=== PATIENT | female | born 1990 | race Caucasian/White ===

== ENCOUNTER 2022-02-09 07:10 | Outpatient (CLI) | payer BC, SELFPAY ==
--- NOTE | ~2022-02-09 | MR_ITS ---
EXAMINATION: MR ankle LT wo con DATE: 02/09/2022 07:46 INDICATION: Plantar fasciitis of left foot. TECHNIQUE: Magnetic resonance imaging (MRI) of the left ankle was performed without intravenous contr ast. Sequences included sagittal PD-weighted FS FSE, sagittal PD-weighted FSE, coronal PD-weighted FS FSE, coronal PD-weighted FSE, axial PD-weighted FS FSE, and axial PD-weighted FSE. COMPARISON: None. FINDINGS: Medial ankle ligaments: The superficial and deep components of the deltoid ligament are normal. Lateral ankle ligaments: There are changes of prior sprains of anterior talofibular ligament and calcaneofibular ligament román acterized increased signal intensity. Posterior talofibular ligament is normal. Anterior and posterio r tibiofibular ligaments are normal. Tendons: The medial and anterior ankle tendons are normal. There is mild peroneus longus tendinopathy. The Ach illes tendon is normal. Plantar fascia: There is thickening and increased signal involving the central band of the plantar fascia, consistent with fasciitis. There is an enthesophyte at the calcaneal attachment with edema-like marrow signal i ntensity. Bones/other: The talar dome is normal. There is no fracture. Fluid: There is no joint effusion. IMPRESSION: 1. Plantar fasciitis. Reviewed, dictated and finalized at location A. IMPRESSION: 1. Plantar fasciitis.
== END 2022-02-09 07:11 ==
LOC: MICIMG 07:11
PROVIDERS: PCP Internal Medicine; Visit Provider Podiatrist Foot & Ankle Surgery
DX: M72.2 Plantar fascial fibromatosis (principal); M79.672 Pain in left foot
CPT/HCPCS: 73721

== ENCOUNTER → 2022-08-18 14:36 | Outpatient (CLI) | payer BC, SELFPAY ==
--- NOTE | ~2022-08-18 | US_ITS ---
EXAMINATION: US transvaginal DATE: 08/18/2022 14:57 INDICATION: Intrauterine device placement. Irregular periods. TECHNIQUE: Multiple transvaginal sonographic images of the pelvis were obtained. COMPARISON: None. FINDINGS: The uterus measures measures 8.9 x 4.3 x 4.8 cm. There is no free fluid in the pelvis. The endometria l complex measures 4 mm in thickness. There is an intrauterine device in expected position. The right ovary measures 3.2 x 1.9 x 1.8 cm. The left ovary measures 3.3 x 2.6 x 2.6 cm. There is normal vascu lar flow in the ovaries. IMPRESSION: 1. Intrauterine device in expected position. Reviewed, dictated and finalized at location E.
== END ==
PROVIDERS: PCP Internal Medicine; Visit Provider Student in an Organized Health Care Education/Training Program
DX: Z30.431 Encounter for routine checking of intrauterine contraceptive device (principal)
CPT/HCPCS: 76830

== ENCOUNTER 2024-08-14 08:53 | Outpatient (CLI) | payer OTHER, SELFPAY ==
--- OUTSIDE RECORDS SUMMARY | 2024-08-14 09:24 | XMS_ITS | Continuity of Care Document ---
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 Name Role Phone Chance Sam MD Unavailable Unavailable Allergies, Adverse Reactions, Alerts Substance Reaction Status Criticality cat dander Itching of eyeSneezing Active No In formation Medications Medication Instructions Dosage Effective Dates (start - stop) Status Comments prednisone 20 mg tablet take 3 Tablet by oral route every day 60 MG - Active Procedures Procedure Date OFFICE/OUTPATIENT VISIT, EST PREV VISIT, NEW, AGE 18-39 Advance Directives Directive Yes / No Effective Date File Name No Information Encounters Encounter Description Practice Location Reason(s) For Visit Diagnoses Date Provider Providers Copied on Encounter OFFICE/OUTPAT IENT VISIT, EST [facility], [address] [facility] [place], [place], [id number], tel:[phone] [facility] COVID1 (chief complaint) Viral infection Flaco Fletcher. [address] [facility] [place], [id number], [place]. tel:[phone] PREV VISIT, NEW, AGE 18-39 [facility], [address] [facility] [place], [place], [id number], [place] tel:[phone] [facility] physical (chief complaint) Encounter for general adult medical examination without abnormal findings Flaco Fletcher. [address] [facility] [place], [id number], [place]. tel:[phone] Family History Family Member Type Diagnosis Age At Onset Mother Problem Alive and well Father Problem Diabetes mellitus Payers Payer name Insurance type Covered libertarian ID Kristal spencer(mark STEELE [id number] Social History Type Description Quantity Date Captured Comments Alcohol Use Details Caffeine Use Details Unknown Tobacco Use Status Current non-smoker Smoking Status Never smoker Sex Female Vital Signs Date / Time: Height Weight BMI Pulse Rate Blood Pressure Temperature Respiratory Rate Body Surface Area Head Circumference BMI percentile Pulse Ox Inhaled Ox 9:50 AM 63.00 in 176.80 lbs 31.3 2 kg/m eter (2) 86 /min 140/80 mm[Hg] 97.2 F 16 /min Chief Complaint And Reason For Visit From encounter dated '06/17/2024 09:47'. COVID1 (chief complaint). Description: Pt c/o acute onset of dry cough, sinus drainage, sore throat, since 7 days ago. Pt had some subjective fever with headache as well .Pt denies any sob Pt went tourgent care 4 days ago and she tested negative for flu, strep throat and positive for COVID Pt is not uptodate with COVID boosters .Pt still has some dry cough, sore throat and sinus symptoms. Pt denies any fever, sob . Plan Of Treatment Date Type Action Status No Information History Of Present Illness Encounter Date Complaint History Of Prese nt Illness COVID1 Pt c/o acute ons et of dry cough, sinus drainage, sore throat, since 7 days ago. Pt had some subjective fever with headache as well .Pt denies any sob Pt went to urgent care 4 days ago and she tested negative for flu, strep throat and positive for COVID Pt is not uptodate with COVID boosters .Pt still has some dry cough, sore throat and sinus symptoms. Pt denies any fever, sob . physical Pt needs annual physical. pt overall feels well .Pt had normal lab last year .Pt denies any complaints Pt wants to establish care only Instructions Date Instruction Additional Infor mation No Information Assessments Type Assessment Date assessment Viral infection Mental Status Date Cognitive Assessment Orientation - [place] ed to time, place, person, situation.
--- OUTSIDE RECORDS SUMMARY | 2024-08-14 09:25 | XMS_ITS | Data Portability ---
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 Plan of Treatment Reminders Order Date Submit Date Provider Last Modified By Organization Details Last Modified Time Details Appointments None recorded. Lab None recorded. Referral None recorded. Procedures None recorded. Surgeries None recorded. Imaging None recorded. Medication Orders fluticasone propionate 50 mcg/actuati on nasal spray,suspe nsion 2023 024 [email or web address] [facility] #[id number], [address], [place], [address], 4 15:16:49 montelukast 10 mg tablet 2023 024 [email or web address] [facility]Ph[facility] #[id number], [address] [facility] [address], [place], [address], 4 15:16:50 Patient TargetsNo targets recorded. Patient InstructionsNo instructions recorded. Reason for Referral None Reported. Results Created Date Observation Date Name Description Value Unit Range Abnormal Flag Note LastModifiedBy Organization Detail LastModifiedTime 05/21/19 24 05/21/2023 SARS- COV-2 RNA(C OVID1 9),RT -PCR sars-cov-2 RNA(covid19) ,RT-PCR NEGATI VE This test has been autho rized by the FDA under an Emerg ency Use Autho rizat ion (EUA) for use by autho rized labor atori es. Negat maria del carmen resul ts do not precl ude SARS- CoV-2 and shoul d not be used as the sole basis for treat ment or other patie nt manag ement decis ions. Test resul ts shoul d be corre lated with the clini radha histo ry, epide miolo gical data, and other data avail able to the clini arina evalu ating the patie nt. Ceasar delcid w the Fact Sheet s for healt h care provi ders and patie nts at the [facility]: https ://ww w.[facility] .gov/ media /136 12/do wnloa d https ://[employer] w.fda .gov/ media /1363 13/do wnloa d Maryo seble y: Real- Time RT-PC R Not Available [facility] ([facility]) [address] [place], [address], 05/21/2023 15:57:11 08/19/19 23 08/18/2022 , deepika montes No observ ation record ed. [facility] [place] [address] [address] [facility] [address], [place], [address], 08/25/2022 14:11:03 Result Notes None recorded. Problems Name Problem SNOMED Code Status Onset Date Resolution Date Notes Provider Name and Address Organization Details Recorded Time Acute sinusitis 91490528 Completed 202201/31/2024 Karlie gray RMA daljit[place] - [employer] 09:30:36 COVID-19 009026172 Completed 202301/31/2024 Karlie gray RMA null, [place] - [employer] 09:30:38 Migraine 92234825 Active 2023 Karlie gray RMA null, [place] - [facility] 09:30:59 Plantar fasciitis of left foot 58092954152 076490 Completed 202101/31/2024 Karlie gray RMA null, [facility] [employer] 4 09:31:02 Plantar fasciitis of right foot 11156988440 366309 Active 2020 Not Available [facility] 3 03:22:47 Acute sinusitis 91680277 Completed 202111/01/2021 Karlie gray BIBIANAKristopher null, [facility] [employer] [facility] 4 09:30:36 Missed miscarria ge 41474398 Completed Not Available [facility] 3 03:22:47 Tibialis posterior tendiniti s 157146509 Active 2020 Not Available [facility] 3 03:22:47 Syncope 144820233 Completed Not Available [facility] 3 03:22:47 Reduced movement 517875529 Completed Not Available [facility] 3 03:22:47 Left lower quadrant pain 969325229 Completed Not Available [facility] 3 03:22:47 Uses IUD (intraute rine device) contracep tion 191867998 Completed Not Available [facility] 3 03:22:48 Pain in right foot 86768908291 9107 Completed 202011/01/2021 Not Available [facility] 3 03:22:48 Sinusitis 59997703 Completed Not Available [facility] 3 03:22:48 Porokerat osis 255960073 Active 2022 Not Available [facility] 3 03:22:48 Cough 40428535 Completed Not Available [facility] 3 03:22:48 Threatene d miscarria ge 84552836 Completed Not Available [facility] 3 03:22:48 Upper respirato ry infection 35986012 Completed Marcella Portillo MD [address], [place], [address] , [facility] [employer] [facility] 4 15:56:28 Allergic rhinitis 43678143 Active 2023 Marcella Portillo MD [address], [address], [place], [address] , [facility] [place] [employer] 09:38:33 Upper respirato ry infection 55164642 Active 2023 Marcella Portillo MD [address] [facility], [facility] [address], [place], [address] , [facility] [employer] 15:56:28 Problem Notes None recorded. Procedures Surgical History Date Name Laterality Status Provider Name and Address Organization Details Recorded Time 9 THREAD CHECKER Procedure completed Not Available [facility] 2022 03:14:37 9 Date of Last Pap Smear completed Not Available [facility] 06/21/2022 03:14:35 7 THREAD CHECKER Procedure completed Not Available [facility] 2022 03:14:37 6 THREAD CHECKER Procedure completed Not Available [facility] 2022 03:14:37 5 THREAD CHECKER Surgery completed Not Available [facility] 06/22/19 03:14:37 4 THREAD CHECKER Procedure completed Not Available [facility] 2022 03:14:37 3 THREAD CHECKER Procedure completed Not Available [facility] 2022 03:14:37 Eye Surgery completed Not Available [facility] 06/21/2022 03:14:37 Imaging Results Imaging Date Name Status LastModified by Organiz ation Details LastModified Time 08/18/2022 US, pelvis completed [email or web address] [facility] [address] [facility] [address], [place], [address], 08/25/2022 14:11:03 Procedure Notes None recorded. Medical Equipment None Reported. Allergies No known drug allergies Medications Name Sig Start Date Stop Date Status Note LastModified by Organization Details LastModified Time cyclobenz aprine 10 mg tablet Take 1 tablet 3 times a day by oral route as needed for 30 days. active Not Available Not Available No t Available amoxicill in 500 mg capsule Take 1 capsule 3 times a day by oral route for 7 days. 05/22 completed Not Available Not Available Not Available medroxypr ogesteron e 10 mg tablet Take 2 tablets 3 times a day by oral route for 7 days. active Not Available Not Available No t Available Mirena 21 mcg/24 hr (up to 8 years) 52 mg intrauter ine device Take 1 device by intraute rine route. 12/19 completed Not Available Not Available Not Available prednison e 10 mg tablet TAKE 1 TAB BY MOUTH 3 TIMES A DAY X 3 DAYS, 1 TAB TWICE DAILY X 2 DAYS, THEN 1 TAB X1DAY 11/01 completed Not Available Not Available Not Available ammonium lactate 12 % lotion Apply 3 applicat ions every day by topical route as needed. 05/22 completed apply to plantar foot callus up to 3 times daily the as needed Not Available Not Available Not Available loperamid e 2 mg capsule 05/22 completed Not Available Not Available Not Available azithromy hira 250 mg tablet TK 2 TS PO AT ONCE TODAY THEN TK 1 T PO ONCE D FOR 4 DAYS active Not Available Not Available No t Available ibuprofen 800 mg tablet TAKE 1 TABLET BY MOUTH THREE TIMES A DAY NEEDED FOR PAIN 05/22 completed Not Available Not Available Not Available fluconazo le 150 mg tablet Take 1 tablet by oral route. active Not Available Not Available No t Available benzonata te 200 mg capsule Take 1 capsule 3 times a day by oral route. active Not Available Not Available No t Available hydrocodo ne 5 mg-acetam inophen 325 mg tablet active Not Available Not Available Not Available meloxicam 15 mg tablet Take 1 tablet every day by oral route as needed for 30 days. 11/01 completed Not Available Not Available Not Available metronida zole 0.75 % (37.5 mg/5 gram) vaginal gel Insert 1 applicat orful by vaginal route at bedtime for 5 days. 02/20 completed Not Available Not Available Not Available terconazo le 0.8 % vaginal cream Insert 1 applicat orful every day by vaginal route for 3 days. active Not Available Not Available No t Available metronida zole 500 mg tablet Take 1 tablet twice a day by oral route for 7 days. active Not Available Not Available No t Available acetamino phen 300 mg-codein e 30 mg tablet active Not Available Not Available Not Available sulfameth oxazole 800 mg-trimet hoprim 160 mg tablet TAKE 1 TABLET BY MOUTH EVERY 12 HOURS FOR 5 DAYS 05/22 completed Not Available Not Available Not Available tramadol 50 mg tablet TAKE 1 TABLET BY MOUTH TWICE A DAY NEEDED active Not Available Not Available No t Available amoxicill in 500 mg tablet Take 1 tablet 3 times a day by oral route for 7 days. active Not Available Not Available No t Available prednison e 10 mg tablets in a dose pack Take 1 tab by mouth, 3 times a day for 3 daysTake 1 tab by mouth 2 times a day for 2 daysTake 1 tab by mouth once a day for 1 day 11/01 completed Not Available Not Available Not Available famotidin e 20 mg tablet Take 1 tablet twice a day by oral route. active Not Available Not Available No t Available Depo-Prov era 150 mg/mL intramusc ular suspensio n Inject 1 mL every 3 months by intramus cular route. 06/18 completed pt tolerate d well-nm Not Available Not Available Not Available Kenalog 10 mg/mL suspensio n for injection In office injectio n administ ered by the provider 11/01 completed [facility]: [id number] 08-10 Not Available Not Available Not Available flunisoli de 25 mcg (0.025 %) nasal spray Please specify directio ns, refills and quantity active Not Available Not Available No t Available ferrous sulfate 325 mg (65 mg iron) tablet TK 1 T PO BID active Not Available Not Available No t Available misoprost ol 200 mcg tablet 2 tabs orally night before procedur e 12/18 completed Not Available Not Available Not Available monteluka st 10 mg tablet TAKE 1 TABLET BY MOUTH EVERY DAY 2023 active CHARLY 01/31/24 ok to rf Not Available Not Available Not Available ibuprofen 600 mg tablet active Not Available Not Available Not Available norethind jonas (contrace ptive) 0.35 mg tablet TAKE 1 TABLET BY MOUTH EVERY DAY active Not Available Not Available No t Available intrauter ine device (IUD) Take by intraute rine route. active Not Available Not Available No t Available ondansetr on 4 mg disintegr ating tablet 05/22 completed Not Available Not Available Not Available fluticaso ne propionat e 50 mcg/actua tion nasal spray,mindy pension SPRAY 2 SPRAYS INTO EACH NOSTRIL EVERY DAY 2023 active CHARLY 01/31/24 ok to rf Not Available Not Available Not Available naproxen 500 mg tablet TAKE 1 TABLET BY MOUTH TWICE A DAY NEEDS AN APPT active Not Available Not Available No t Available metoclopr amide 10 mg tablet Take 1 tablet 3 times a day by oral route. active Not Available Not Available No t Available amoxicill in 875 mg-potass ium clavulana te 125 mg tablet TAKE 1 TABLET BY MOUTH TWICE A DAY 05/22 completed Not Available Not Available Not Available Depo-Prov era 150 mg/mL intramusc ular syringe Inject 1 mL every 3 months by intramus cular route. 05/22 completed Not Available Not Available Not Available cyclobenz aprine 5 mg tablet Take 1 tablet 3 times a day by oral route. active Not Available Not Available No t Available 05/12 (21) 1 mg-20 mcg tablet TAKE 1 TABLET BY MOUTH EVERY DAY 05/22 completed Not Available Not Available Not Available once a day 2014 active Not Available Not Available Not Avai lable lidocaine (PF) 10 mg/mL (1 %) injection solution In office injectio n administ ered by the provider 11/01 completed [facility]: [id number] 10-07 Not Available Not Available Not Available Se-Rich 19 (with docusate) 29 mg iron-1 mg-25 mg tablet TK 1 T PO D active Not Available Not Available No t Available 19 (with docusate) 29 mg iron-1 mg-25 mg tablet Take 1 tablet by oral route. active Not Available Not Available No t Available Claritin- D 2014 active Not Available Not Available Not Avai lable Xulane 150 mcg-35 mcg/24 hr transderm al patch APPLY 1 PATCH TO SKIN Q WEEK FOR 3 WEEKS THEN OFF FOR 1 WEEK active Not Available Not Available No t Available Afluria Qd (36 mos up)(PF)60 mcg (15 mcg x4)/0.5 mL IM syringe active Not Available Not Available Not Available Twirla 120 mcg-30 mcg/24 hr transderm al patch Apply 1 patch every week by transder mal route for 21 days. 05/22 completed Not Available Not Available Not Available Vitals Date Recorded Body weight Body mass index (BMI) Body height Body temperature Systolic blood pressure Diastolic blood pressure Provider Name and Address Organization Details Last Updated DateTime 4 99687.9 3 g 29.6 kg/m2 160.02 cm 97.9 [degF] 118 mm[Hg] 62 mm[Hg] Gianna Earl CMA IN [employer] [facility] [employer] [facility] 4 14:54:00 Date Recorded Body height Body mass index (BMI) Body weight Body temperature Heart rate Oxygen saturation Oxygen saturation in Arterial blood by Pulse oximetry Systolic blood pressure Diastolic blood pressure Provider Name and Address Organization Details Last Updated DateTime 4 160.02 cm 28.9 kg/m2 04145.5 6 g 97.2 [degF] 79 /min 99 % 99 % 124 mm[Hg] 80 mm[Hg] Karlie Herman axel ALLY IN [employer] [facility] [employer] [facility] 4 09:29:21 Date Recorded Body height Body mass index (BMI) Body weight Body temperature Oxygen saturation Oxygen saturation in Arterial blood by Pulse oximetry Heart rate Systolic blood pressure Diastolic blood pressure Provider Name and Address Organization Details Last Updated DateTime 4 160.02 cm 29.9 kg/m2 53138.1 1 g 98.8 [degF] 98 % 98 % 77 /min 119 mm[Hg] 78 mm[Hg] Fernanda mckinney [place] [employer] [facility] [employer] [facility] 4 15:21:26 Date Recorded Body mass index (BMI) Body height Body weight Provider Name and Address Organization Details Last Updated DateTime 03/30/2022 28.9 kg/m2 160.02 cm 43254.56 g Not Available [facility] 06/21/2022 03:20:00 Social History Question Answer Notes LastModified by Organizat ion Details LastModified Time Tobacco Smoking Status Never Smoker Not Available [facility] 06/21/2022 03:09:21 Do You Have An Advance Directive? No [id number] Information not available 06/21/2022 What Is Your Level Of Alcohol Consumption? Occasional [id number] Information not available 06/21/2022 What Is Your Level Of Caffeine Consumption? Moderate [id number] Information not available 06/21/2022 How Much Tobacco Do You Chew? None [id number] Information not available 06/21/2022 What Type Of Diet Are You Following? REGULAR [id number] Information not available 06/21/2022 Which Illicit Or Recreational Drugs Have You Used? None [id number] Information not available 06/21/2022 Do You Or Have You Ever Used E-cigarettes Or Vape? 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 11/01/2020 [id number] Information not available 06/21/2022 Do You Use Sunscreen Routinely? No [id number] Information not available 06/21/2022 Sex: Female Functional Status Question Answer Note LastModified by Organizat ion Details LastModified Time What is your exercise level? Occasional [id number] Information not available 06/21/2022 Mental Status None recorded. Family History Relationship Description Onset Age of this Age Resolved Age Notes LastModified by Organization Details LastModified Time Paternal Grandmother Malignant tumor of ovary [id number] Not available 06/21/2022 03:14:43 Maternal Grandmother Malignant tumor of colon [id number] Not available 06/21/2022 03:14:43 Medical History No medical history recorded. Gynecological History Statement/Question Response Date of Last Pap 07/10/2018 Date of Last Pap Smear 07/10/2018 Current Control Method Depo-Capsule Inspector a Age at Menarche 14 Date of LMP Obstetrics History GPAL:G 3 P 2 0 1 2 Type Value Full Term 2 Spontaneous 1 Living 2 Total 3 Immunizations Vaccine Type Date Status Note Provider Nam e and Address Organization Details Recorded Time Influenza, split virus, quadrivalent, preservative 0 completed Not Available [facility] 06/21/2022 03:31:45 Past Encounters Encounter ID Performer Location Encounter Start Date Encounter Closed Date Diagnosis/Indication Diagnosis SNOMED-CT Code Diagnosis ICD10 Code Diagnosis Note [id number] _BIMAL_Dori IGRATION_ DEFAULT_1 _1 , 07/27/2020 00:00:00 07/27/2020 10:07:54 [id number] [facility] [place] [address] [place] [address] 08/02/2020 00:00:00 08/02/2020 10:41:59 [id number] _ATHENA_M IGRATION_ DEFAULT_1 _1 , 09/09/2020 00:00:00 09/09/2020 17:10:14 [id number] [facility] [place] [address] [place] [address] 09/27/2020 00:00:00 09/27/2020 13:41:54 [id number] _ATHENA_M IGRATION_ DEFAULT_1 _1 , 10/19/2020 00:00:00 10/19/2020 10:33:38 [id number] [facility] [address] [place] [address] 11/01/2020 00:00:00 11/01/2020 15:42:24 [id number] [facility] [place] [address] [place] [address] 11/08/2020 00:00:00 11/09/2020 08:58:08 [id number] [facility] [place] [address] [place] [address] 11/18/2020 00:00:00 11/19/2020 09:57:57 [id number] [facility] [place] [address] [place] [address] 12/09/2020 00:00:00 12/10/2020 08:50:51 [id number] [facility] [place] [address] [place] [address] 12/30/2020 00:00:00 12/30/2020 13:58:01 [id number] _ATHENA_M IGRATION_ DEFAULT_1 _1 , 01/17/2021 00:00:00 01/17/2021 14:45:20 [id number] [facility] [place] [address] [place] [address] 06/30/2021 00:00:00 07/02/2021 12:43:31 [id number] [facility] [address] [place] [address] 09/21/2021 00:00:00 09/21/2021 17:05:03 [id number] [facility] [place] [address] [place] [address] 11/03/2021 00:00:00 11/06/2021 15:01:52 [id number] _ATHENA_M IGRATION_ DEFAULT_1 _1 , 12/09/2021 00:00:00 12/11/2021 11:44:54 [id number] _ATHENA_M IGRATION_ DEFAULT_1 _1 , 01/13/2022 00:00:00 01/14/2022 11:23:54 [id number] _ATHENA_M IGRATION_ DEFAULT_1 _1 , 03/03/2022 00:00:00 03/03/2022 10:21:13 [id number] [facility] [place] [address] [place] [address] 03/30/2022 00:00:00 03/30/2022 14:06:04 [id number] [facility] [place] [address] [place] [address] 05/15/2022 00:00:00 05/20/2022 09:14:28 [id number] Marcella Portillo MD [facility] [address] [place] [address] 05/22/2023 14:44:00 05/22/2023 15:16:21 Migraine 33311108 G43.909 will try otc Excedrin prn, call if not better [id number] Marcella Portillo MD [facility] [address] [place] [address] 01/31/2024 09:26:14 01/31/2024 09:44:09 Allergic rhinitis 54068306 J30.9 needs meds fro few month when season changes [id number] Marcella Portillo MD [facility] [address] [place] [address] 04/09/2024 15:12:17 04/09/2024 16:07:44 Upper respiratory infection 46024068 J06.9 advil cold and sinusFlona se Health Concerns Section Related Observation LastModified by Organization Detai ls LastModified Time None Recorded Concern Status LastModified by Organization Details LastModified Time None Recorded Advance Directives Directive N: Payers Encounter Date Sequence Insurance Name Policy Number Policy Vences Covered Member ID Vences Member ID Guarantor Name 05/22/2023 1 [place] 112 Beatriz A Claudia [id number] Beatriz A Claudia 01/31/2024 1 [place] 112 Beatriz A Claudia [id number] Beatriz A Claudia 04/09/2024 1 [place] 112 Beatriz A Claudia [id number] Beatriz A Claudia Notes Date Note Type Note Provider Name and Address Organization Details Recorded Time 05/22/2023 text/html She is here toda y for not feeling good. States the Last couple days has been having a really bad headaches, Has been very nauseated, has vomited once and Has had diarrhea. No feverPressure behind the eyesphotophobia, phonophobiano sinus problems COVID- NEGATIVEHas been taking Extra strength tylenol which does not help muchNeeds a work note because she did take off yesterday and today Marcella Portillo MD [address], [facility] [address], [place], [address], [employer] 05/22/2023 15:17:08 01/31/2024 text/html Pt is here today for a cough. Has been going on off and on for about 3 weeks. Has been taking OTC Claritin, Zyrtec -DWas Negative for COVID. No feversneezing , itchy eyespost nasal drainage Marcella Portillo MD [address], [facility] [address], [place], [address], [employer] [facility] [employer] 01/31/2024 09:41:39 04/09/2024 text/html pt still has dry cough tickling with some sinus drainage about 2 wks with body chills,low grade temp of an on. No otc med pt is using flonaseno cp or wheezingno wheezing Marcella Portillo MD [address] [address], [place], [address], [facility] [employer] [facility] 04/09/2024 15:59:00 OBGyn Episode No OBEpisode recorded.
[2024-08-14 09:49] LABS: Beta HCG Quantitative < 2.39 mIU/ML
== END 2024-08-14 08:54 | disposition home or self-care (01) ==
PROVIDERS: PCP Internal Medicine; Visit Provider Student in an Organized Health Care Education/Training Program
DX: N91.2 Amenorrhea, unspecified (principal)
CPT/HCPCS: 36415; 84702

== ENCOUNTER 2024-09-29 08:18 | Outpatient (CLI) | payer OTHER, SELFPAY ==
--- OUTSIDE RECORDS SUMMARY | 2024-09-29 08:37 | XMS_ITS | Continuity of Care Document ---
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 [address] [facility] [place], [address], [place]. tel:[phone] PREV VISIT, NEW, AGE 18-39 [facility], [address] [facility] [place], [address], [place] tel:[phone] [facility] physical (chief complaint) Encounter for general adult medical examination without abnormal findings [employer]aco Fletcher. [address] [employer] [facility] [place], [address], [place]. tel:[phone] Family History Family Member Type Diagnosis Age At Onset Mother Problem Alive and well Father Problem Diabetes mellitus Payers Payer name Insurance type Covered republican ID Kristal spencer(mark STEELE [id number] Social History Type Description Quantity Date Captured [...] Mental Status Date Cognitive Assessment Orientation - Aledo ed to time, place, person, situation.
--- OUTSIDE RECORDS SUMMARY | 2024-09-29 08:37 | XMS_ITS | Data Portability ---
Author Organization [facility] [employer], Main Office Address [address] [place] [address] Care Team Providers Care Data Collection Associate Name Role Phone MARCELLA PORTILLO Primary Care Provider [phone] MARCELLA PORTILLO Referring Provider Assessment No assessment recorded. Plan of Treatment Reminders Order Date Submit Date Provider Last Modified By Organization Details Last Modified Time Details Appointments None recorded. Lab None recorded. Referral None recorded. Procedures None recorded. Surgeries None recorded. Imaging None recorded. Medication Orders fluticasone propionate 50 mcg/actuati on nasal spray,suspe nsion 2023 024 [email or web address] [facility]/Ph[facility] #[id number], [address] [facility], [place], [address], 4 15:16:49 montelukast 10 mg tablet 2023 024 [email or web address] [facility]/Pharmacy #[id number], [address] [facility] [facility], [place], [address], 4 15:16:50 Patient TargetsNo targets recorded. Patient [...] provi ders and patie nts at the [facility] madie: https ://ww w.MySongToYou .gov/ media /1366 12/do wnloa d https ://Orbital Traction w.fda .gov/ media /1363 13/do wnloa d Maryo seble y: Real- Time RT-PC R Not Available [facility] ([facility]) [address] [place], [address], 05/21/2023 15:57:11 08/19/19 23 08/18/2022 , deepika montes No observ ation record ed. [facility] [place] [address] [address] [facility] [address], [place], [address], 08/25/2022 14:11:03 Result Notes None recorded. Problems Name Problem SNOMED Code Status Onset Date Resolution Date Notes Provider Name and Address Organization Details Recorded Time Acute sinusitis 45788840 Completed 202201/31/2024 Karlie gray RMA daljit, [place] - [employer] 09:30:36 COVID-19 346266506 Completed 202301/31/2024 Karlie gray RMA null, [place] - [employer] 09:30:38 Migraine 29882086 Active 2023 Karlie gray RMA null, [place] - [facility] [employer] 09:30:59 Plantar fasciitis of left foot 39191143000 703135 Completed 202101/31/2024 Karlie gray RMA null, [facility] [employer] 4 09:31:02 Plantar fasciitis of right foot 97130290570 709874 Active 2020 Not Available [facility] 3 03:22:47 Acute sinusitis 78069505 Completed 202111/01/2021 Karlie gray BIBIANAKristopher null, [facility] [employer] [facility] 4 09:30:36 Missed miscarria ge 81709074 Completed Not Available [facility] 3 03:22:47 Tibialis posterior tendiniti s 453144711 Active 2020 Not Available [facility] 3 03:22:47 Syncope 592236358 Completed Not Available [facility] 3 03:22:47 Reduced movement 910021556 Completed Not Available [facility] 3 03:22:47 Left lower quadrant pain 541468411 Completed Not Available [facility] 3 03:22:47 Uses IUD (intraute rine device) contracep tion 644786152 Completed Not Available [facility] 3 03:22:48 Pain in right foot 80479522753 9107 Completed 202011/01/2021 Not Available [facility] 3 03:22:48 Sinusitis 59575179 Completed Not Available [facility] 3 03:22:48 Porokerat osis 543971471 Active 2022 Not Available [facility] 3 03:22:48 Cough 30866780 Completed Not Available [facility] 3 03:22:48 Threatene d miscarria ge 10299017 Completed Not Available [facility] 3 03:22:48 Upper respirato ry infection 49564181 Completed Marcella Portillo MD [address], [place], [address] , [facility] [employer] [facility] 4 15:56:28 Allergic rhinitis 80489442 Active 2023 Marcella Portillo MD [address], [place], [address] , [facility] [place] [employer] 09:38:33 Upper respirato ry infection 97718653 Active 2023 Marcella Portillo MD [address] [facility], [facility] [address], [place], [address] , [facility] - [employer] MD [employer] [facility] 15:56:28 Problem Notes None recorded. Procedures Surgical History Date Name Laterality Status Provider Name and Address Organization Details Recorded Time 9 SENIOR FINANCIAL CONSULTANT Procedure completed Not Available [facility] 2022 03:14:37 9 Date of Last Pap Smear completed Not Available [facility] 06/21/2022 03:14:35 7 SENIOR FINANCIAL CONSULTANT Procedure completed Not Available [facility] 2022 03:14:37 6 SENIOR FINANCIAL CONSULTANT Procedure completed Not Available [facility] 2022 03:14:37 5 SENIOR FINANCIAL CONSULTANT Surgery completed Not Available [facility] 06/22/19 03:14:37 4 SENIOR FINANCIAL CONSULTANT Procedure completed Not Available [facility] 2022 03:14:37 3 SENIOR FINANCIAL CONSULTANT Procedure completed Not Available [facility] 2022 03:14:37 Eye Surgery completed Not Available [facility] 06/21/2022 03:14:37 Imaging Results None recorded. Procedure Notes None recorded. Medical Equipment None [...] administ ered by the provider 11/[address] [facility]: [id number] 08-10 Not Available Not Available Not [...] administ ered by the provider 11/[address] [facility]: [id number] 10-07 Not Available Not Available Not [...] Address Organization Details Last Updated DateTime 4 92758.9 3 g 29.6 kg/m2 160.02 cm 97.9 [degF] 118 mm[Hg] 62 mm[Hg] Gianna Earl CMA [place] - [facility] 4 14:54:00 Date Recorded Body height Body mass index (BMI) Body weight Body temperature Heart rate Oxygen saturation Oxygen saturation in Arterial blood by Pulse oximetry Systolic blood pressure Diastolic blood pressure Provider Name and Address Organization Details Last Updated DateTime 4 160.02 cm 28.9 kg/m2 14920.5 6 g 97.2 [degF] 79 /min 99 % 99 % 124 mm[Hg] 80 mm[Hg] Karlie reyna BIBIANAKristopher [place] - S MD [employer] [facility] 4 09:29:21 Date Recorded Body mass index (BMI) Body height Body weight Provider Name and Address Organization Details Last Updated DateTime 03/30/2022 28.9 kg/m2 160.02 cm 85197.56 g Not Available [facility] 06/21/2022 03:20:00 Date Recorded Body height Body mass index (BMI) Body weight Body temperature Oxygen saturation Oxygen saturation in Arterial blood by Pulse oximetry Heart rate Systolic blood pressure Diastolic blood pressure Provider Name and Address Organization Details Last Updated DateTime 4 160.02 cm 29.9 kg/m2 54787.1 1 g 98.8 [degF] 98 % 98 % 77 /min 119 mm[Hg] 78 mm[Hg] Fernanda mckinney [place] - [facility] [employer] [facility] 4 15:21:26 Social History Question Answer Notes LastModified by [employer] Details LastModified Time Tobacco Smoking Status Never Smoker Not Available [facility] 06/21/2022 03:09:21 Do You Have An Advance Directive? No [id number] Information not available 06/21/2022 What Is Your Level Of Caffeine Consumption? Moderate [id number] 026 Information not available 06/21/2022 How Much Tobacco Do You Chew? None [id number] Information not available 06/21/2022 What Type Of Diet Are You Following? REGULAR [id number].[id number] 026 Information not available 06/21/2022 Which Illicit Or Recreational Drugs Have You Used? None [id number] 026 Information not available 06/21/2022 What Was The Date Of Your Most Recent Tobacco Screening? 11/01/2020 [id number] Information not available 06/21/2022 Do You Use Sunscreen Routinely? No [id number].[id number] 026 Information not available 06/21/2022 Sex: Female Functional Status Question Answer Note LastModified by Organizat ion Details LastModified Time What is your level of alcohol consumption? 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 Never used electronic cigarettes [id number].6056273 026 Information not available 06/21/2022 What is your exercise level? Occasional [id number] 026 Information not available 06/21/2022 Mental Status None recorded. Family History Relationship Description Onset Age of this Age Resolved Age Notes LastModified by Organization Details LastModified Time Paternal Grandmother Malignant neoplasm of ovary [id number] Not available 06/21/2022 03:14:43 Maternal Grandmother Malignant tumor of colon MIGRATION.660 [id number] Not available 06/21/2022 03:14:43 Medical History No medical history recorded. Gynecological History Statement/Question Response Date of Last Pap 07/10/2018 Date of Last Pap Smear 07/10/2018 Current Control Method [employer] a Age at Menarche 14 Date of LMP Obstetrics History GPAL:G 3 P 2 0 1 2 Type Value Full Term 2 Spontaneous 1 Living 2 Total 3 Immunizations Vaccine Type Date Status Note Provider Nam e and Address Organization Details Recorded Time Influenza, split virus, quadrivalent, preservative 0 completed Not Available [facility] 06/21/2022 03:31:45 Past Encounters Encounter ID Performer Location Encounter Start Date Encounter Closed Date Diagnosis/Indication Diagnosis SNOMED-CT Code Diagnosis ICD10 Code Diagnosis Note [id number] [facility] _ATHENA_M IGRATION_ DEFAULT_1 _1 , 07/27/2020 00:00:00 07/27/2020 10:07:54 [id number] MIKE Bucio [facility] [place] [address] [address] [place] [address] 08/02/2020 00:00:00 08/02/2020 10:41:59 [id number] [facility] _ATHENA_M IGRATION_ DEFAULT_1 _1 , 09/09/2020 00:00:00 09/09/2020 17:10:14 [id number] [facility] [place] [address] [place] [address] 09/27/2020 00:00:00 09/27/2020 13:41:54 [id number] [facility] _ATHENA_M IGRATION_ DEFAULT_1 _1 , 10/19/2020 00:00:00 10/19/2020 10:33:38 [id number] Marcella Portillo MD S[facility] [address] [facility] [place] [address] 11/01/2020 00:00:00 11/01/2020 15:42:24 [id number] [facility] [place] [address] [place] [address] 11/08/2020 00:00:00 11/09/2020 08:58:08 [id number] [facility] [place] [address] [place] [address] 11/18/2020 00:00:00 11/19/2020 09:57:57 [id number] [facility] [place] [address] [place] [address] 12/09/2020 00:00:00 12/10/2020 08:50:51 [id number] [facility] [place] [address] [place] [address] 12/30/2020 00:00:00 12/30/2020 13:58:01 [id number] [facility] _ATHENA_M IGRATION_ DEFAULT_1 _1 , 01/17/2021 00:00:00 01/17/2021 14:45:20 [id number] [facility] [place] [address] [place] [address] 06/30/2021 00:00:00 07/02/2021 12:43:31 [id number] Marcella Portillo MD [facility] [address] [place] [address] 09/21/2021 00:00:00 09/21/2021 17:05:03 [id number] [facility] [place] [address] [place] [address] 11/03/2021 00:00:00 11/06/2021 15:01:52 [id number] [facility] _ATHENA_M IGRATION_ DEFAULT_1 _1 , 12/09/2021 00:00:00 12/11/2021 11:44:54 [id number] [facility] _ATHENA_M IGRATION_ DEFAULT_1 _1 , 01/13/2022 00:00:00 01/14/2022 11:23:54 [id number] [facility] _ATHENA_M IGRATION_ DEFAULT_1 _1 , 03/03/2022 00:00:00 03/03/2022 10:21:13 [id number] [facility] [place] [address] [place] [address] 03/30/2022 00:00:00 03/30/2022 14:06:04 [id number] Dyllan Orozco DPM [facility] [place] [address] [place] [address] 05/15/2022 00:00:00 05/20/2022 09:14:28 [id number] Marcella Portillo MD [facility] [address] [facility] [place] [address] 05/22/2023 14:44:00 05/22/2023 15:16:21 Migraine 87128672 G43.909 will try otc Excedrin prn, call if not better [id number] Marcella Portillo MD [facility] [address] [facility] [place] [address] 01/31/2024 09:26:14 01/31/2024 09:44:09 Allergic rhinitis 19684741 J30.9 needs meds fro few month when season changes [id number] Marcella Portillo MD [facility] [address] [place] [address] 04/09/2024 15:12:17 04/09/2024 16:07:44 Upper respiratory infection 89071384 J06.9 advil cold and sinusFlona se Health Concerns Section Related Observation LastModified by Organization Detai ls LastModified Time None Recorded Concern Status LastModified by Organization Details LastModified Time None Recorded Advance Directives Directive N: Payers Encounter Date Sequence Insurance Name Policy Number Policy Vences Covered Member ID Vences Member ID Guarantor Name 05/22/2023 1 [place] 112 Beatriz A Claudia [id number] Beatriz A Claudia 01/31/2024 1 [place] 112 Beatriz A Claudia [id number] Beatriz A Claudia 04/09/2024 1 [place] [id number] Beatriz A Claudia [id number] Beatriz A Claudia Notes Date Note Type [...] and today Marcella Portillo MD [address], [place], [address], [place] - S [employer] 05/22/2023 15:17:08 01/31/2024 text/html Pt is here today for a cough. Has been going on off and on for about 3 weeks. Has been taking OTC Claritin, Zyrtec -DWas Negative for COVID. No feversneezing , itchy eyespost nasal drainage Marcella Portillo MD [address], [place], [address], [facility] [employer] [facility] 01/31/2024 09:41:39 04/09/2024 text/html pt still has dry cough tickling with some sinus drainage about 2 wks with body chills,low grade temp of an on. No otc med pt is using flonaseno cp or wheezingno wheezing Marcella Portillo MD [address] [address], [place], [address], [facility] [employer] [facility] 04/09/2024 15:59:00 OBGyn Episode No OBEpisode recorded.
[2024-09-29 09:54] LABS: Basophils Absolute Auto 0.1 K/mm3 (0.0-0.1); Basophils Percent Auto 0.8 % (0.2-1.2); Eosinophils Absolute Auto 0.4 K/mm3 (0-0.3); Eosinophils Percent Auto 5.2 % (0-4.4); Hematocrit 43.5 % (37.0-47.0); Hemoglobin 14.3 g/dL (12.0-15.0); Immature Granulocyte Absolute 0.03 K/mm3 (0.00-0.031); Immature Granulocyte Percent A 0.4 % (0-0.5); Lymphocytes Absolute Auto 1.87 K/mm3 (0.9-3.2); Lymphocytes Percent Auto 25.4 % (18.3-44.2); Mean Corpuscular HGB Conc 32.9 g/dl (32-36); Mean Corpuscular Volume 94.2 fl (80-100); Mean Platelet Volume 9.4 fl (7.4-10.4); Monocytes Absolute Auto 0.4 K/mm3 (0.1-0.6); Monocytes Percent Auto 4.9 % (2.6-8.5); Neutrophils Absolute Auto 4.7 K/mm3 (1.3-6.7); Neutrophils Percent Auto 63.3 % (45.5-73.1); Platelet Count Result 272 k/mm3 (150-375); Red Blood Count 4.62 M/mm3 (4.2-5.4); Red Cell Distribution Width 12.4 % (11.5-14.5); White Blood Count 7.4 K/mm3 (4.5-10.0)
[2024-09-29 10:35] LABS: Syphilis IgG/IgM Antibody Non-Reactive (Nonreactive)
[2024-09-29 10:38] LABS: Hepatitis B Surface Antigen Negative (Negative)
[2024-09-29 10:46] LABS: Rubella IgG Antibody 18.5 IU/ML
[2024-09-29 10:47] LABS: HIV 1/2 Ab P24 Ag Result Negative (Negative)
[2024-09-29 10:50] LABS: Glucose 1 Hour PP 50gm Dose 91 mg/dL
[2024-09-30 15:58] LABS: Varicella IgG Antibody 6.52 S/CO
[2024-10-01 06:59] LABS: CMV IgG Antibody <0.60 U/mL
== END 2024-09-29 08:19 | disposition home or self-care (01) ==
LOC: ANHLAB 08:20
PROVIDERS: PCP Internal Medicine; Visit Provider Obstetrics & Gynecology
DX: N91.2 Amenorrhea, unspecified (principal)
CPT/HCPCS: 36415; 82947; 84702; 85025; 86593; 86644; 86703; 86747; 86762; 86787; 86850; 86900; 86901; 87086; 87340; G0432

== ENCOUNTER 2025-03-03 08:24 | Outpatient (CLI) | payer OTHER, SELFPAY ==
[2025-03-03 10:05] LABS: Hematocrit 36.8 % (37.0-47.0); Hemoglobin 12.2 g/dL (12.0-15.0); Immature Granulocyte Percent A 1.0 % (0-0.5); Lymphocytes Absolute Auto 1.71 K/mm3 (0.9-3.2); Mean Corpuscular HGB Conc 33.2 g/dl (32-36); Mean Corpuscular Hemoglobin 31.3 pg (26-34); Mean Corpuscular Volume 94.4 fl (80-100); Nucleated Red Blood Cells Absolute Auto 0.000 K/mm3 (0.0-0.012); Nucleated Red Blood Cells Perc 0.0 % (0.0-0.2); Platelet Count Result 283 k/mm3 (150-375); Red Blood Count 3.90 M/mm3 (4.2-5.4); White Blood Count 11.7 K/mm3 (4.5-10.0)
[2025-03-03 10:24] LABS: Glucose 1 Hour PP 50gm Dose 125 mg/dL
[2025-03-03 10:46] LABS: Syphilis IgG/IgM Antibody Non-Reactive (Nonreactive)
[2025-03-03 10:59] LABS: HIV 1/2 Ab P24 Ag Result Negative (Negative)
== END 2025-03-03 08:25 | disposition home or self-care (01) ==
LOC: ANHLAB 08:26
PROVIDERS: PCP Internal Medicine; Visit Provider Obstetrics & Gynecology
DX: Z34.90 Encounter for supervision of normal pregnancy, unspecified, unspecified trimester (principal); Z3A.00 Weeks of gestation of pregnancy not specified
CPT/HCPCS: 36415; 82947; 85025; 86593; 86703; G0432